=== PATIENT | male | born 1960 | race Caucasian/White ===

== ENCOUNTER 2017-09-20 08:22 | Emergency (ER) | payer SELFPAY ==
[~2017-09-20] VITALS: Ht 170.2 cm; Wt 80.0 kg
[2017-09-20 08:37] VITALS: BP 167/87
== END 2017-09-20 10:55 | disposition home or self-care (01) ==
LOC: ER 08:22
DX: Z48.02 Encounter for removal of sutures (principal)
CPT/HCPCS: 99282; Z7610